=== PATIENT | female | born 1950 | race Caucasian/White ===

== ENCOUNTER 2021-04-08 09:48 | Emergency (ER) | payer MEDICARE, OTHER ==
[~2021-04-08] VITALS: Ht 152.4 cm; Wt 74.8 kg
[~2021-04-08 09:48] MED LIST: ACET325 PO; ATOR20 PO; BACL10 PO; BETASERON; CALCIUM 600 +1 EAC7 PO; CEPH500 PO; CHOL10002 PO; CIPR500 PO; DOCU100 PO; FISH1000 PO; METPRE4DP PO; MULVITMIND PO; NITR100CA PO; Norco 5-325 Ta1 EACH PO; OXYC5 PO; Pyridium100 MG PO; TECFIDERA1 EACH PO; WARF10 PO; WARF5 PO; WARF7.5 PO
[2021-04-08 10:44] LABS: BASOPHILS ABSOLUTE AUTO 0.02 K/mm3 (0.00-0.23); BASOPHILS PERCENT AUTO 1 % (0-2); EOSINOPHILS ABSOLUTE AUTO 0.01 K/mm3 (0.00-0.68); EOSINOPHILS PERCENT AUTO 0 % (0-6); Hematocrit 42.2 % (33.0-51.0); Hemoglobin 13.6 g/dL (11.5-16.0); IMMATURE GRAN ABSOLUTE AUTO 0.02 K/mm3 (0.00-0.10); IMMATURE GRAN PERCENT AUTO 1 % (0-1); LYMPHOCYTES ABSOLUTE AUTO 0.77 K/mm3 (0.84-5.20); LYMPHOCYTES PERCENT AUTO 18 % (21-46); MONOCYTES ABSOLUTE AUTO 0.61 K/mm3 (0.16-1.47); MONOCYTES PERCENT AUTO 14 % (4-13); Mean Corpuscular HGB Conc 32.2 g/dL (31.5-36.5); Mean Corpuscular Volume 90 fL (80-100); Mean Platelet Volume 11.7 fL (9.1-12.4); NEUTROPHILS PERCENT AUTO 67 % (41-73); Platelet Count 162 K/mm3 (150-400); RDW Coefficient Variation 13.7 % (11.7-14.2); RDW Standard Deviation 45.6 fL (35.1-46.3); Red Blood Cell Count 4.69 M/mm3 (3.80-5.20); White Blood Cell Count 4.33 K/mm3 (4.00-11.30)
[2021-04-08 11:04] LABS: Anion Gap 4 mmol/L (6-16); Blood Urea Nitrogen 17 mg/dL (8-24); Bun/Creatinine Ratio 20.9 (12.0-20.0); CO2, Blood 31 mmol/L (21-32); Calcium, Blood 8.5 mg/dL (8.5-10.1); Chloride, Blood 107 mmol/L (98-108); Creatinine, Blood 0.82 mg/dL (0.40-1.00); Glomerular Filtration Rate >60 (60-); Glucose, Blood 120 mg/dL (70-99); Potassium, Blood 4.4 mmol/L (3.5-5.5); Sodium, Blood 142 mmol/L (136-145)
[2021-04-08 11:39] LABS: Source, Urine Straight Cath
[2021-04-08 11:47] LABS: Influenza A, PCR NEGATIVE (NEGATIVE); Influenza B, PCR NEGATIVE (NEGATIVE); Resp Syncytial Virus, PCR NEGATIVE (NEGATIVE)
[2021-04-08 11:50] LABS: SARS-Cov-2 (COVID-19) PCR, MMC POSITIVE (NEGATIVE)
[2021-04-08 11:53] LABS: Appearance, Urine Clear (Clear); Bilirubin, Urine Neg (Neg); Blood, Urine Neg (Neg); Color, Urine Yellow (P-Yellow); Glucose Qualitative, Urine Neg (Neg); Ketones, Urine Neg (Neg); Leukocyte Esterase, Urine Neg (Neg); Nitrite, Urine Neg (Neg); Protein, Urine Neg (Neg); Specific Gravity, Urine 1.015 (1.003-1.022); Urobilinogen, Urine NORM (Normal)
== END 2021-04-08 16:50 | disposition home or self-care (01) ==
LOC: ER 09:48
PROVIDERS: Student in an Organized Health Care Education/Training Program
DX: U07.1 COVID-19 (principal); G35 Multiple sclerosis; I10 Essential (primary) hypertension; Z79.01 Long term (current) use of anticoagulants; Z79.899 Other long term (current) drug therapy; Z88.1 Allergy status to other antibiotic agents; Z91.040 Latex allergy status; Z91.048 Other nonmedicinal substance allergy status
CPT/HCPCS: 0241U; 70450; 71045; 80048; 81003; 83735; 84443; 85025; 93005; 93010; 99285-25; A9270; J7030; M0247; P9612

== ENCOUNTER 2021-12-10 21:56 | Observation (INO) | payer MEDICARE, OTHER ==
[~2021-12-10] VITALS: Ht 152.4 cm; Wt 70.7 kg
[~2021-12-10 21:56] MED LIST changes: +ALEVAZOL56.7 G1 TOP; +ASPIR 8181 M1 PO; +BACL20 PO; +CALCIUM CARBON500 M1 PO; +DIMETHYL FUMAR240 MG PO; +VITAMIN D31000 UNIT PO
[2021-12-10 23:32] LABS: BASOPHILS ABSOLUTE AUTO 0.04 K/mm3 (0.00-0.23); BASOPHILS PERCENT AUTO 1 % (0-2); EOSINOPHILS ABSOLUTE AUTO 0.12 K/mm3 (0.00-0.68); EOSINOPHILS PERCENT AUTO 1 % (0-6); Hematocrit 40.8 % (33.0-51.0); Hemoglobin 13.4 g/dL (11.5-16.0); IMMATURE GRAN ABSOLUTE AUTO 0.03 K/mm3 (0.00-0.10); IMMATURE GRAN PERCENT AUTO 0 % (0-1); LYMPHOCYTES ABSOLUTE AUTO 0.79 K/mm3 (0.84-5.20); LYMPHOCYTES PERCENT AUTO 9 % (21-46); MONOCYTES ABSOLUTE AUTO 0.77 K/mm3 (0.16-1.47); MONOCYTES PERCENT AUTO 9 % (4-13); Mean Corpuscular HGB 29.1 pg (26.0-34.0); Mean Corpuscular HGB Conc 32.8 g/dL (31.5-36.5); Mean Corpuscular Volume 89 fL (80-100); Mean Platelet Volume 10.6 fL (9.1-12.4); NEUTROPHILS ABSOLUTE AUTO 7.08 K/mm3 (1.96-9.15); NEUTROPHILS PERCENT AUTO 80 % (41-73); Platelet Count 217 K/mm3 (150-400); RDW Coefficient Variation 13.5 % (11.7-14.2); RDW Standard Deviation 43.5 fL (35.1-46.3); Red Blood Cell Count 4.61 M/mm3 (3.80-5.20); White Blood Cell Count 8.83 K/mm3 (4.00-11.30)
[2021-12-10 23:49] LABS: Bun/Creatinine Ratio 35.2 (12.0-20.0); Calcium, Blood 9.1 mg/dL (8.5-10.1); Creatinine, Blood 0.6 mg/dL (0.40-1.00); Potassium, Blood 4.2 mmol/L (3.5-5.5)
[2021-12-11 11:38] LABS: Source, Urine Straight Cath
[2021-12-11 11:52] LABS: Appearance, Urine Clear (Clear); Bilirubin, Urine Neg (Neg); Blood, Urine Neg (Neg); Color, Urine Yellow (P-Yellow); Glucose Qualitative, Urine Neg (Neg); Ketones, Urine Neg (Neg); Leukocyte Esterase, Urine Neg (Neg); Nitrite, Urine Neg (Neg); Protein, Urine Neg (Neg); Specific Gravity, Urine 1.015 (1.003-1.022); Urobilinogen, Urine NORM (Normal)
[2021-12-11 12:43] LABS: Influenza A, PCR NEGATIVE (NEGATIVE); Influenza B, PCR NEGATIVE (NEGATIVE); Resp Syncytial Virus, PCR NEGATIVE (NEGATIVE); SARS-Cov-2 (COVID-19) PCR, MMC NEGATIVE (NEGATIVE)
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
--- NOTE | 2021-12-12 18:12 | NUR ---
SHIFT SUMMARY PT AWAKE DURING SHIFT REPORT, RESTING QUIETLY WATCHING TV. PT ADMITTED FOR MS AND IS W/C BOUND AT BASELINE. PT ADMITTED FOR PLACEMENT TO PENITENTIARY CARE UNABLE TO CARE FOR HER ANYLONGER. PT IS VERY WEAK WITH MINIMAL MOVEMENT TO BLE'S. PT ABLE TO MOVE FEET AT ANKLES, BUT NOT LEGS. PT SCREAMS IN PAIN WHEN R LEG/KNEE IS MOVED AT ALL, EVEN SLIGHTLY ELEVATED TO PUT ON PILLOW. LE'S AND FEET VERY SWOLLEN AND RED. PT IS CONTINENT OF BOWELS. PT'S HERE THIS EVENING TO BRING IN HOME MED. PT ABLE TO EAT AND DRINK WELL AND FEED HERSELF. MEDICATED WITH TYLENOL FOR C/O PAIN TO R LEG THIS EVENING. DENIED FURTHER NEEDS AT THIS TIME. CALL LT IN REACH.
--- NOTE | 2021-12-13 03:11 | NUR ---
ESPERANZA HAS SLEPT WELL SINCE APPROX 2200. RIGHT LEG CONTINUES TO BE EXQUISITELY PAINFUL WHEN TOUCHED. PER PATIENT, THIS LEG IS CHRONICALLY UNCOMFORTABLE FOR HER. DRY PATCHES ON ANTERIOR R. GOODEN REMAIN UNCHANGED FROM PREVIOUS TIME IN HOSPITAL. LEFT HEEL MEPILEX IN PLACE WITH PHOTO ON CHART. NO OTHER CHANGES NOTED OVERNIGHT.
--- NOTE | 2021-12-13 11:05 | NUR ---
Spiritual care Consult received and processed. Pt is lying in bed and has spouse, Aristeo, bedside. She is hesitant to speak and Aristeo does not engage in conversation. I provide prayer. Pt voices appreciation. After my visit I hear from a staff member that pt would like to speak to me again when Aristeo is not present. I will return to pt when the pt is free of visitors.
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
--- NOTE | 2021-12-13 18:14 | NUR ---
SHIFT SUMMARY- PT IS A/O, PLESANT AND COOPERATVIE. SHE IS EATING AND DRINKING WELL. HER WAS AT BEDSIDE TWICE THIS SHIFT. SPIRITUAL CARE WAS AT BEDSIDE TWICE THIS SHIFT. SHE HAD A BM THIS SHIFT. HER BED IS IN HE LOW POSITON AND CALL LIGHT IS WITIN REACH.
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
--- NOTE | 2021-12-14 17:56 | NUR ---
SHIFT SUMMARY PT VSS. PT BMX2. PT EMOTIONAL THROUGHOUT SHIFT. REQUESTED VISIT FROM SPIRITUAL CARE, CONTACTED. PT BED RIDDEN. PURE WICK IN PLACE. METPOLIX C,D,I. PT REQUESTED "ASK NURSE BEFORE ENTERING ROOM" ACCOMMEDATED PT NEEDED. PT APPETITE GOOD. CALL LIGHT IN REACH. WILL CONTINUE TO MONITOR.
--- NOTE | 2021-12-15 04:57 | NUR ---
TRACTOR TRAILER MOVING VAN DRIVER SUMMARY AWAKE AND COMPLIANT AT SHIFT COMMENCE. TALKATIVE. AFFECT CHEERFUL, BUT THEN APPEARED TO SHOW SOME CONCERN SHE DISCUSSED HER . INTERMITTENTLY ASSISTED WITH REPOSITIONING. HAS BEEN RESTING QUIETLY WITH FEW INTERRUPTIONS. PUREWICK IN USE. VOIDING QS. MEPILEX APPLIED TO BUTTOCK FOR PROTECTION. CALL LIGHT IN REACH
--- NOTE | 2021-12-15 17:21 | NUR ---
SHIFT SUMMARY- VSS. SOME R HIP PAIN, FLOATED FOR RELIEF NEEDED. MEDICATED PER EMAR. PT ANXIOUS TODAY, CONTACTED , MEDICATED PER EMAR. BANDAGE CHANGE BLE, CDI. PURE WICK IN PLACE. ON RA. APPETITE OK. COPPERATIVE, TEARFUL. BED ALARM, SIDE RAILS, SARWAT CALL LIGHT IN REACH.
--- NOTE | 2021-12-16 05:09 | NUR ---
SHIFT SUMMARY PT AOX4, DX OF MS. BASELINE SEVERE WEAKNESS PREVENTS AMBULATION OR REPOSITIONING IN BED, PT BED RIDDEN. PUREWICK IN PLACE AND DRAINING WELL. MEPILEX ON COCCYX C/D/I. PT ATTEMPTED TO USE BEDPAN X 1 TO PRODUCE BM BUT WAS UNABLE. SLEPT COMFORTABLY T/O THE NIGHT. HOME MS MEDS IN [facility]. POSSIBLE D/C TO [facility] TODAY OR TOMORROW. VSS, PLEASANT AND COOPERATIVE WITH CARE.
--- NOTE | 2021-12-16 10:48 | NUR ---
pt laying in bed awake a/ox3, pleasant and cooperative with care, follows commands well, watching tv. lungs are clear t/o, resp even and unlabored, no cough noted, currently on r/a, hrr, 1+ edema noted to b/l le, ppp faint, cap refill <3sec, vs stable, afebrile, btx4, abd flat soft nontender, incont of urine, purewik in place, as well as briefs, skin has some ecchymotic areas, and mepilex to coccyx and heel, moves upper arms, legs are very weak, linh, call light in reach.
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
--- NOTE | 2021-12-16 16:03 | NUR ---
pt resting in bed watching tv, no complaints or needs at this time, she reports she is looking forward to going to [facility] tomorrow to assisted living, states her spouce needs to sign papers for her to go and will be in later. call light in reach.
--- NOTE | 2021-12-16 18:42 | NUR ---
pt had an uneventful day, no acute changes this shift, plan to go to [facility] tomorrow. call light in reach.
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
[2021-12-17] MEDS ORDERED: Acetaminophen650 M1 PO (10:56)
[2021-12-17] MEDS ORDERED: GABA300 PO (10:57)
[2021-12-17] MEDS ORDERED: BUSP5 PO (10:57)
--- NOTE | 2021-12-17 13:40 | NUR ---
PT AO AND COOPERATIVE OF CARE. PT DISCHARGED AT 1305 TO [facility] ALL PERSONAL BELONGINGS WITH HER. PT HAS BEEN PLEASANT ABLE TO HAVE BM PRIOR TO DISCHARGE. AMBULANCE TO TRANSPORT VIA [facility]. ALL PAPERWORK REVIEWED AND EDUCATIONAL MATERIAL SENT WITH PT.
== END 2021-12-17 13:16 ==
LOC: ER 21:56 → MEDS 21:57
PROVIDERS: Emergency Medicine; ADMIT Internal Medicine
DX: G35 Multiple sclerosis (principal); G62.9 Polyneuropathy, unspecified; I10 Essential (primary) hypertension; E78.5 Hyperlipidemia, unspecified; F41.9 Anxiety disorder, unspecified; Z86.711 Personal history of pulmonary embolism; Z66 Do not resuscitate; Z99.3 Dependence on wheelchair; Z20.822 Contact with and (suspected) exposure to COVID-19
CPT/HCPCS: 0241U; 36415; 71045; 80048; 81003; 85025; 93005; 93010; 96372; 97163; 97530; 99285-25; A9270; G0378; J1650; J7030